=== PATIENT | male | born 1955 | race Caucasian/White ===

== ENCOUNTER 2017-05-06 10:15 | Day surgery (SDC) | payer OTHER ==
[2016-12-06 10:33] VITALS: BMI 22.4
[2017-05-06] MEDS ORDERED: Midazolam 2 MG/2 ML VIAL ONE (11:57)
[2017-05-06] MEDS ORDERED: Propofol 10 mg/ml Inj (20 ML) ONE (11:57)
--- NOTE | 2017-05-06 11:57 | CP.SDSHP ---
Same Day Surgery H & P - History Proposed Procedure: colonoscopy - Allergies Allergies: Allergies No Known Allergies Allergy (Verified 05/06/17 10:50) - Physical Exam Vital Signs: Vital Signs 05/06/17 05/06/17 10:54 11:20 Temperature 97 F L Pulse Rate 58 L 58 L Respiratory 19 Rate Blood Pressure 125/83 O2 Sat by Pulse 100 Oximetry Short Stay Discharge - Short Stay Discharge Admitting Diagnosis/Reason for Visit: ENCOUNTER FOR SCREENING FOR MALIGNANT NEOPLASM OF Disposition: HOME/ ROUTINE
--- NOTE | 2017-05-06 12:00 | CP.SDSHP ---
Same Day Surgery H & P - Allergies Allergies: Allergies No Known Allergies Allergy (Verified 05/06/17 10:50) - Physical Exam Vital Signs: Vital Signs 05/06/17 05/06/17 05/06/17 10:54 11:20 11:56 Temperature 97 F L 97 F L Pulse Rate 58 L 58 L 58 L Respiratory 19 19 Rate Blood Pressure 125/83 125/83 O2 Sat by Pulse 100 100 Oximetry - Date & Time Date: 05/06/17 Time: 11:59 Short Stay Discharge - Short Stay Discharge Admitting Diagnosis/Reason for Visit: ENCOUNTER FOR SCREENING FOR MALIGNANT NEOPLASM OF Disposition: HOME/ ROUTINE
[2017-05-06] MEDS ORDERED: Lidocaine Hydrochloride 5 ML INJ ONE (12:24)
[2017-05-06 12:25] VITALS: TEMP 98.9
[2017-05-06 13:21] VITALS: BP 108/75; PULSE 61; RESP 18; O2SAT 99
== END 2017-05-06 13:18 | disposition home or self-care (01) ==
LOC: C.ENDO 10:15
PROVIDERS: ATTEND Colon & Rectal Surgery
DX: K62.1 Rectal polyp (principal); K64.8 Other hemorrhoids; D12.5 Benign neoplasm of sigmoid colon
CPT/HCPCS: 45388; 88305; J2250; J2704

== ENCOUNTER 2017-05-15 08:29 | Day surgery (SDC) | payer OTHER ==
[2016-12-06 10:33] VITALS: BMI 22.4
[2017-05-15] MEDS ORDERED: Lidocaine 1% Inj (20ml) ONE (10:56)
[2017-05-15] MEDS ORDERED: Bupivacaine-Epi 0.25%-1:200,000 PF Inj ONE (10:56)
[2017-05-15] MEDS ORDERED: ceFAZolin IV 2 gm in Dextrose 1 GM/50 ML BAG IVPB ONE (10:56)
[2017-05-15] MEDS ORDERED: Midazolam 2 MG/2 ML VIAL ONE (11:08)
[2017-05-15] MEDS ORDERED: Propofol 10 mg/ml Inj (20 ML) ONE (11:09)
[2017-05-15] MEDS ORDERED: Lactated Ringer's 1,000 ML IV ONE ×3 (11:10→13:15)
[2017-05-15] MEDS ORDERED: Rocuronium 10 mg/ml (5 ml) ONE (12:38)
[2017-05-15] MEDS ORDERED: HYDROmorphone 0.5 mg/0.5 ml ISec IVP PRN (13:39)
[2017-05-15] MEDS ORDERED: Oxycodone/Acetaminophen 5/325 mg Tab PO PRN (13:41)
[2017-05-15] MEDS ORDERED: Lactated Ringer's 1,000 ML IV SCH (13:45)
--- NOTE | 2017-05-15 13:51 | PCM.SURG1 ---
<Mya Craven - Last Filed: 05/15/17 13:51> Surgeon's Initial Post Op Note - Surgeon's Notes Surgeon: Dr. Victoria Insurance Claims Assistant: Mya Craven, PGY2 Pre-Operative Diagnosis: Right inguinal hernia Operative Findings: See full operative report Post-Operative Diagnosis: same Operation Performed: Robotic right inguinal hernia repair with mesh Specimen/Specimens Removed: none Estimated Blood Loss: EBL {In ML}: 5 Date of Surgery/Procedure: 05/15/17 Time of Surgery/Procedure: 11:30 <Riley Victoria - Last Filed: 05/19/17 14:09> Surgeon's Initial Post Op Note - Surgeon's Notes Pre-Operative Diagnosis: Left Inguinal Hernia. Correct side is Left inguinal area. Post-Operative Diagnosis: Left Inguinal Hernia. Correct side is Left inguinal area. Operation Performed: Robotic Left Direct Inguinal hernia repair with mesh
[2017-05-15 16:40] VITALS: BP 116/63; PULSE 87; RESP 20; TEMP 98.8; O2SAT 99
--- NOTE | 2017-05-29 14:57 | PCM.OP ---
Operative Report - Operative Report Date of Surgery/Procedure: 05/15/17 Surgeon: Riley Victoria MD [employer] Products Demonstrator: Mya Craven MD. Anesthesia/Sedation: General anesthesia. Pre-Operative Diagnosis: 1. Left inguinal hernia, possible bilateral. Post-Operative Diagnosis: 1. Left inguinal hernia, direct. Indication for Surgery: Patient had a left direct inguinal hernia. Procedure/Operation Description: 1. Robotic left inguinal hernia repair with mesh. This 61 year-old male was diagnosed with left inguinal hernia. Patient was consented for the robotic left inguinal hernia repair with mesh. Brought to OR, placed supine on operating table. After induction of anesthesia, the abdomen was prepped and draped in the usual sterile fashion. The intraumbilical transverse 1.5 cm incision was made. After incising skin, subcutaneous tissue and fascia, the robotic camera port was placed and another 3 robotic ports were placed in upper abdomen. The robot was brought in, camera on, excellent arm 1 and arm 2 were docked. Dissection of the anterior, superior iliac spine from the left side up to the midline was done. Patient did not have a right inguinal hernia. There was no bulge outside and there was no defect inside. After incising the peritoneum and the fascia, the dissection was carried down to the space superior just medially laterally to the lateral abdominal wall. And the dissection was carried down to reduce the direct hernial sac. Patient also had a very small indirect hernia. After complete reduction of sac and dissection of peritoneum all the way down, the direct hernial sac defect was empty, fascia was brought in and inverted and stapled in the midline to close the defect. Now , the mesh was placed and after proper implantation of mesh, the peritoneum was sutured with 2-0 PDS V-Loc suture. All the instruments were taken out. Robot was undocked. All the ports were taken out. Under vision, pneumo was deflated. The umbilical port site was closed in two layers; the fascia with a 0-vicryl in double sutures, end with a 4-0 monocryl. Dry, sterile dressing was applied. Patient tolerated procedure well. Count of instruments was correct. There were no apparent complications. Estimated Blood Loss: 10 cc. Drains: None. Complications: None. Specimen: None.
== END 2017-05-15 16:45 | disposition home or self-care (01) ==
LOC: C.SDS 08:29
PROVIDERS: ATTEND Surgery Surgical Critical Care
DX: K40.90 Unilateral inguinal hernia, without obstruction or gangrene, not specified as recurrent (principal)
CPT/HCPCS: 49650; C1781; J0690; J1170; J1885; J2250; J2704; J3010; J7120